=== PATIENT | female | born 1935 | race Two or more races ===

== ENCOUNTER 2016-06-05 09:43 | Inpatient (IN) | payer MEDICARE, OTHER ==
[~2016-06-05] VITALS: Ht 167.6 cm; Wt 70.0 kg
[~2016-06-05 09:43] MED LIST: FURO20TA PO; GABA300C5 PO; LANTUS2P SQ; LEVO.125 PO; LOSA50TA PO; NOVONP2 SQ; SIMV40TA PO
[2016-06-07] MEDS ORDERED: PANT40TA3 PO (10:33)
[2016-06-07] MEDS ORDERED: CARB200T PO (10:33)
[2016-06-18] MEDS ORDERED: PHENYLEPH/NS 1000 MCG/10 ML SYR IV ONE (07:48)
[2016-06-18] MEDS ORDERED: ONDANSETRON HCL 4 MG/2 ML VIAL IV PUSH ONE (07:48)
[2016-06-18] MEDS ORDERED: PROPOFOL 200 MG/20 ML AMP IV ONE (07:48)
[2016-06-18] MEDS ORDERED: NORMOSOL R INJ 1,000 ML IV ONE (07:49)
[2016-06-18] MEDS ORDERED: LACTATED RINGER'S 1000 ML INJ 1,000 ML IV ONE (07:49)
[2016-06-18 10:42] VITALS: BP 125/64; PULSE 69; RESP 18; TEMP 98.2; O2SAT 96
[2016-06-18] MEDS ORDERED: POVIDONE IODINE 5% (ANTISEPSIS KIT) 4 APPLICATIONS EACH NARE PRN (10:45)
[2016-06-18] MEDS ORDERED: METOPROLOL TARTRATE 25 MG TAB PO PRN (10:45)
[2016-06-18] MEDS ORDERED: ceFAZolin 1,000 MG/NS 100 ML IV SCH ×2 (10:45)
[2016-06-18] MEDS ORDERED: INSULIN HUMAN REGULAR 1,000 UNITS/10 ML VIAL SQ PRN (10:45)
[2016-06-18] MEDS ORDERED: LACTATED RINGER'S 1000 ML IV PRN (10:45)
[2016-06-18] MEDS ORDERED: CHLORHEXIDINE GLUCONATE 2 % 1 PACK (2 CLOTHS) TOPICAL PRN (10:45)
[2016-06-18] MEDS ORDERED: SODIUM CHLORID 0.9% 500 ML IV PRN (10:45)
[2016-06-18] MEDS ORDERED: BYST2.5T2 PO (10:52)
[2016-06-18] MEDS ORDERED: DEXAMETHASONE SOD PHOS 4 MG/ML VIAL ONE (13:15)
[2016-06-18] MEDS ORDERED: SUGAMMADEX SODIUM 200 MG/2 ML VIAL IV PUSH ONE ×2 (13:15)
[2016-06-18] MEDS ORDERED: MIDAZOLAM HCL 2 MG/2 ML VIAL ONE (13:15)
[2016-06-18] MEDS ORDERED: ceFAZolin INJ 1,000 MG VIAL IV ONE (16:44)
[2016-06-18] MEDS ORDERED: fentaNYL CITRATE 250 MCG/5 ML AMP ONE (16:56)
[2016-06-18] MEDS ORDERED: ACETAMINOPHEN 1000 MG/100 ML VIAL IV ONE (19:09)
[2016-06-18] MEDS ORDERED: DO NOT ADM ANY ANTICOAGULANT DRUGS PRN (19:42)
--- NOTE | 2016-06-18 19:49 | PD.OP ---
Operative Report Date of Surgery: Jun 18, 2016 Preoperative Diagnosis: (1) Urothelial carcinoma of kidney Postoperative Diagnosis: (1) Urothelial carcinoma of kidney Procedure: Cystoscopy, placement of left ureteral stent and robot-assisted laparoscopic left nephroureterectomy Anesthesia: General Surgeon: Mehul Zuniga Health Physicist(s): Jack Sorenson Operation and Findings: Indication for procedure: The case of a pleasant 81-year-old female who was diagnosed with a low-grade urothelial carcinoma involving the upper pole of the left kidney recently in [place]. Patient underwent biopsy of the mass to confirm the diagnosis. Subsequent metastatic workup was negative. She presents now for a robot-assisted laparoscopic left nephro ureterectomy. Operative procedure in detail: Patient was brought to the operating room suite and placed supine on the OR table. She was then placed under general tracheal anesthesia. She was then repositioned in the dorsolithotomy position and prepped and draped in normal sterile fashion. After the appropriate timeout was undertaken I proceeded with cystoscopic evaluation utilizing the rigid cystoscope with the 20 Marshallese sheath and 30 lens. Both right and left ureteral orifices were in correct anatomic position effluxing clear yellow urine. There were no areas suspicious for bladder cancer. There were no stones or diverticula noted. I then proceeded to pass a 6 Marshallese 24 cm double- J stent over a sensor 0.035 wire into the left kidney to facilitate identification of the ureter. The patient was then repositioned on the OR table in the right lateral recumbent position and was held in position with a beanbag. All pressure points were adequately padded. The patient was once again reprepped and draped in normal sterile fashion. I then proceeded to place the laparoscopic ports. Initially a Veress needle was utilized to create a pneumoperitoneum in standard fashion. The camera port was placed just lateral to the umbilicus on the patient's left side utilizing a visual obturator. Once the camera port was placed, the remaining robotic arm ports numbering 3 as well as a 12 mm miller first port were placed under direct vision. The robot was next Dr. in standard fashion. I repositioned myself over at the [employer] console and Dr. Sorenson remained at the bedside to first leveler. I next commenced with the robotic portion of the procedure. The patient's left hemicolon was mobilized and reflected medially to expose the retroperitoneum. The kidney was mobilized utilizing blunt and sharp dissection until the hilar vessels were identified. They were then skeletonized and subsequently divided and ligated utilizing the endovascular stapling device. The remainder the kidney was further mobilized and the ureter was identified and tracked inferiorly to the pelvic inlet. Just prior to finishing the dissection of the ureter the robotic system gross and medical staff assistant needed to be rebooted twice for her to regain operation. Further mobilization of the ureter was then easily accomplished. At this point in time careful inspection was made for any evidence of active bleeding and was noted. The robot was next undocked and I re-scrubbed and present are myself back over to the operative room table for completion of the case with further mobilization of the distal ureter. I extended the 12 mm medical staff assistant port in a caudad direction to the symphysis pubis with a #10 blade. The underlying fascia was opened using the Bovie cautery. The Bookwalter retractor was then utilized to gain exposure and the ureter was easily identified and further mobilized down to the bladder. A right angle clamp was placed around the juncture of the ureter with the bladder and the tissue was divided and ligated utilizing 2-0 Vicryl suture. The specimen was next handed off. Careful inspection was made factor bleeding and was noted. The wound was next closed after removing the Bookwalter retractor. #1 PDS suture was utilized to reapproximate the lower abdominal fashion. The wound was then irrigated with normal saline and the skin edges reapproximated with the skin stapling device. The 3 robotic arm ports were closed utilizing alex at the skin surface and the final port utilized for the camera was closed as follows. The underlying fascia was reapproximated with 2-0 Vicryl suture and the skin edges reapproximated with the stapling device. Sterile dressings were placed over all of the wound sites. The patient tolerated the procedures without complications and was transferred to the PACU in satisfactory condition. Mehul Zuniga MD Jun 18, 2016 19:49
[2016-06-18] MEDS ORDERED: HYDROmorphone HCL PF 1 MG/ML VIAL IV PRN (20:00)
[2016-06-18] MEDS ORDERED: Post-op Orders (for Pharmacy) MISC XX ONE (20:00)
[2016-06-18] MEDS ORDERED: SODIUM CHLORIDE 0.9% FLUSH 10 ML FLUSH IV FLUSH PRN (20:00)
[2016-06-18] MEDS ORDERED: HYDROmorphone HCL PF 2 MG/ML VIAL IV PRN (20:00)
[2016-06-18] MEDS ORDERED: MORPHINE SULFATE 8 MG/ML INJ ONE (20:19)
[2016-06-18] MEDS: ONDANSETRON HCL 4 MG/2 ML VIAL IV PRN (20:40)
[2016-06-18] MEDS ORDERED: METOCLOPRAMIDE HCL 10 MG/2 ML VIAL ONE (20:56)
[2016-06-18] MEDS ORDERED: HYDROmorphone HCL PF 1 MG/ML VIAL ONE (20:57)
[2016-06-18] MEDS: SODIUM CHLORIDE 0.9% FLUSH 10 ML FLUSH IV FLUSH SCH (21:02)
[2016-06-18] MEDS ORDERED: D5-1/2 NS + KCL 20 MEQ INJ 1,000 ML ONE (21:28)
[2016-06-18] MEDS ORDERED: INSULIN HUMAN REGULAR 1,000 UNITS/10 ML VIAL ONE (22:18)
[2016-06-18] MEDS ORDERED: DEXTROSE 50% IN WATER 50 ML VIAL(D50) IV PUSH PRN (22:30)
[2016-06-18] MEDS ORDERED: GLUCAGON 1 MG/ML VIAL OTHER PRN (22:30)
[2016-06-18 23:20] VITALS: BP 150/100; PULSE 89; RESP 18; TEMP 96.9; O2SAT 100
[2016-06-19] VITALS (9 sets, daily range): BP systolic 155–166; BP diastolic 68–72; PULSE 77–92; RESP 16–17; TEMP 96.1–98.9; O2SAT 92–100
[2016-06-19] MEDS ORDERED: METOCLOPRAMIDE HCL 10 MG/2 ML VIAL IV ONE (01:15)
[2016-06-19] MEDS ORDERED: HYDROmorphone HCL PF 1 MG/ML VIAL IV ONE (01:15)
[2016-06-19] MEDS ORDERED: D5-1/2 NS + KCL 20 MEQ INJ 1,000 ML IV SCH (01:30)
[2016-06-19] MEDS ORDERED: LOW DOSE INSULIN NOVOLIN REGULAR SUPPLEMENTAL SCALE SQ SCH (07:00)
[2016-06-19] MEDS ORDERED: 1/2 NS + KCL 20 MEQ INJ 1,000 ML IV SCH (07:00)
[2016-06-19 07:46] LABS: HEMATOCRIT 37.4 % (35.0-46.0); REVIEW FLAG FINAL
[2016-06-19 09:10] LABS: POTASSIUM 6.3 MEQ/L (3.5-5.1)
[2016-06-19] MEDS: INSULIN DETEMIR 100 UNITS/ML VIAL SQ SCH (09:32)
[2016-06-19] MEDS: FUROSEMIDE 20 MG TAB PO SCH (09:33)
[2016-06-19] MEDS: carBAMazepine 200 MG TAB PO SCH (09:33)
[2016-06-19] MEDS: NEBIVOLOL 2.5 MG TAB PO SCH (09:33)
[2016-06-19] MEDS: SODIUM CHLORIDE 0.9% FLUSH 10 ML FLUSH IV FLUSH SCH ×2 (09:33→21:00)
[2016-06-19] MEDS: MEDIUM DOSE INSULIN NOVOLIN REGULAR SUPPLEMENTAL SCALE SQ SCH ×3 (11:00→21:00)
[2016-06-19] MEDS ORDERED: DEXTROSE 50% IN WATER 50 ML VIAL(D50) IV PUSH PRN (11:00)
[2016-06-19] MEDS ORDERED: GLUCAGON 1 MG/ML VIAL OTHER PRN (11:00)
[2016-06-19] MEDS: SODIUM CHLOR 0.45% 1000 ML INJ 1,000 ML IV SCH ×3 (12:06→21:04)
--- NOTE | 2016-06-19 12:39 | HHI.PR ---
Subjective Patient symptoms today Postop day #1 Complains of nausea and incisional pain Denies vomiting Denies flatus or bowel movement Objective Vital Signs Vital Signs Date Time Temp Pulse Resp B/P Pulse Ox O2 Delivery O2 Flow Rate FiO2 06/19/16 08:00 98.9 83 17 166/72 94 06/19/16 04:05 96.1 85 16 155/70 100 06/19/16 01:28 88 06/18/16 23:44 100 Nasal Cannula 3.00 06/18/16 23:20 96.9 89 18 150/100 100 06/18/16 23:00 97.5 91 15 176/92 99 Nasal Cannula 06/18/16 22:30 90 14 177/82 99 Nasal Cannula 06/18/16 22:00 97.5 62 15 162/74 99 Nasal Cannula 06/18/16 21:30 117 16 117/60 99 Nasal Cannula 06/18/16 21:00 90 14 179/86 99 Nasal Cannula 06/18/16 20:15 92 15 194/85 99 Nasal Cannula 06/18/16 20:00 112 17 188/106 99 Nasal Cannula 06/18/16 19:44 97.6 89 14 167/82 99 Intake & Output 06/19/16 06/19/16 07:00 19:00 Intake Total 2645 ml 0 ml Output Total 1100 ml 350 ml Balance 1545 ml -350 ml Intake Oral 0 ml 0 ml IV Total 845 ml Other 1800 ml Output Urine Total 700 ml 350 ml Estimated Blood Loss 400 ml # Bowel Movements 0 Result Diagram: 06/19/16 0626 06/19/16 0835 Objective Remarks Abdomen soft, dressings clean and dry Extremities well-perfused, nontender Medications and IVs Current Medications Medications (Trade) Dose Ordered Sig/Aruna Route Start Time Stop Time Status Last Admin Lactated Ringer's 1,000 ml @ 30 mls/hr Q24H PRN IV 06/18/16 10:45 06/21/16 10:44 (NS 500 ml Inj) 500 ml @ 30 mls/hr [id number] PRN IV 06/18/16 10:45 06/21/16 10:44 (NS Flush) 2 ml UNSCH PRN IV FLUSH 06/18/16 20:00 (NS Flush) 2 ml BID IV FLUSH 06/18/16 21:00 06/19/16 09:33 (Dilaudid Pf Inj) 0.5 mg Q2H PRN IV 06/18/16 20:00 06/19/16 05:52 (Dilaudid Pf Inj) 1 mg Q2H PRN IV 06/18/16 20:00 Ondansetron HCl 4 mg 4 mg Q6H PRN IV 06/18/16 20:00 06/18/16 20:40 (Ancef Inj/NS Inj) 100 ml @ 200 mls/hr Q8H IV 06/18/16 21:00 06/19/16 13:29 06/19/16 12:22 (Heparin Inj) 5,000 units Q12H SQ 06/19/16 18:42 Miscellaneous Information ALL NURSING DEPARTME... UNSCH PRN .XX 06/18/16 19:42 06/19/16 19:41 (Bystolic) 2.5 mg DAILY PO 06/19/16 09:00 06/19/16 09:33 (TEGretol) 200 mg DAILY PO 06/19/16 09:00 06/19/16 09:33 (Lasix) 20 mg DAILY PO 06/19/16 09:00 06/19/16 09:33 (Neurontin) 300 mg HS PO 06/19/16 21:00 (Levemir Inj) 48 units DAILY@0600 SQ 06/19/16 07:00 06/19/16 09:32 (D50w (Vial) Inj) 25 ml UNSCH PRN IV PUSH 06/19/16 11:00 Glucagon 1 mg 1 mg UNSCH PRN OTHER 06/19/16 11:00 (1/2 NS 1000 ml Inj) 1,000 ml @ 125 mls/hr Q8H IV 06/19/16 11:00 06/19/16 12:06 (Narcan Inj) 0.4 mg UNSCH PRN IV 06/19/16 12:45 UNV (Narcan Inj) 0.4 mg UNSCH PRN IV 06/19/16 12:45 UNV (Dilaudid [employer] Inj) 6 mg UNSCH IV 06/19/16 12:45 UNV [employer] Dosage Infused (Pha) 1 Q8HR OTHER 06/19/16 14:00 UNV Assessment and Plan Assessment and Plan Urologic impression: #1 status post robot-assisted laparoscopic left nephro ureterectomy #2 expected postoperative course Plan: #1 clear liquids as tolerated #2 out of bed to chair in a.m. #3 monitor labs #4 check pathology when available Mehul Zuniga MD Jun 19, 2016 12:39
[2016-06-19] MEDS ORDERED: HYDROmorphone HCL PCA 6 MG/30 ML IV SCH (12:45)
[2016-06-19] MEDS ORDERED: NALOXONE HCL 0.4 MG/ML AMP IV PRN ×2 (12:45)
[2016-06-19] MEDS: ONDANSETRON HCL 4 MG/2 ML VIAL IV PRN (13:08)
[2016-06-19] MEDS: PCA - TOTAL MG DILAUDID DELIVERED PER SHIFT OTHER SCH ×2 (14:00→22:00)
[2016-06-19] MEDS: HEPARIN SODIUM - SQ 10,000 UNITS/ML VIAL SQ SCH (17:35)
[2016-06-19] MEDS: GABAPENTIN 300 MG CAP PO SCH (21:03)
[2016-06-19] MEDS ORDERED: diphenhydrAMINE HCL 50 MG/ML VIAL IV PRN (21:30)
[2016-06-19] MEDS: diphenhydrAMINE HCL 50 MG/ML VIAL IV PRN (22:26)
[2016-06-20] VITALS (7 sets, daily range): BP systolic 131–179; BP diastolic 61–75; PULSE 86–94; RESP 16–18; TEMP 97–99.5; O2SAT 92–98
[2016-06-20] MEDS: INSULIN DETEMIR 100 UNITS/ML VIAL SQ SCH (06:00)
[2016-06-20] MEDS: PCA - TOTAL MG DILAUDID DELIVERED PER SHIFT OTHER SCH ×2 (06:00→14:00)
[2016-06-20 06:17] LABS: HEMATOCRIT 26.3 % (35.0-46.0); MEAN CELL VOLUME 83.7 FL (80.0-100.0); MEAN CORPUSCULAR HEMOGLOBIN 28.5 PG (27.0-34.0); PLATELET COUNT 132 TH/MM3 (150-450); RED BLOOD COUNT 3.14 MIL/MM3 (4.00-5.30); RED CELL DISTRIBUTION WIDTH 14.4 % (11.6-17.2); REVIEW FLAG FINAL; WHITE BLOOD COUNT 11.2 TH/MM3 (4.0-11.0)
[2016-06-20] MEDS: HEPARIN SODIUM - SQ 10,000 UNITS/ML VIAL SQ SCH ×2 (06:42→19:11)
[2016-06-20 06:53] LABS: BICARBONATE 26.7 MEQ/L (21.0-32.0); POTASSIUM 3.8 MEQ/L (3.5-5.1)
[2016-06-20] MEDS: MEDIUM DOSE INSULIN NOVOLIN REGULAR SUPPLEMENTAL SCALE SQ SCH ×4 (07:00→21:30)
[2016-06-20] MEDS: carBAMazepine 200 MG TAB PO SCH (10:10)
[2016-06-20] MEDS: NEBIVOLOL 2.5 MG TAB PO SCH (10:10)
[2016-06-20] MEDS: FUROSEMIDE 20 MG TAB PO SCH (10:11)
[2016-06-20] MEDS: SODIUM CHLORIDE 0.9% FLUSH 10 ML FLUSH IV FLUSH SCH ×2 (10:11→21:00)
[2016-06-20] MEDS: SODIUM CHLOR 0.45% 1000 ML INJ 1,000 ML IV SCH (10:17)
--- NOTE | 2016-06-20 13:02 | HHI.PR ---
Subjective Patient symptoms today Postop day #2 Tolerating small amounts of oral clear liquids No significant flatus or bowel movement Denies vomiting Objective Vital Signs Vital Signs Date Time Temp Pulse Resp B/P Pulse Ox O2 Delivery O2 Flow Rate FiO2 06/20/16 11:39 97.9 86 16 131/70 98 06/20/16 08:07 98.3 94 18 140/62 97 06/20/16 06:00 17 06/20/16 04:10 97.0 91 18 139/63 94 06/20/16 00:15 98.5 87 17 144/61 94 06/19/16 22:00 16 06/19/16 20:59 77 06/19/16 19:25 97.5 92 16 160/68 95 06/19/16 18:24 96 06/19/16 18:00 86 06/19/16 16:32 98.5 85 16 164/72 96 06/19/16 15:34 18 06/19/16 15:04 18 06/19/16 14:00 18 Intake & Output 06/20/16 06/20/16 07:00 19:00 Intake Total 2156 ml Output Total 775 ml Balance 1381 ml Intake Oral 360 ml IV Total 1796 ml Output Urine Total 775 ml # Bowel Movements 0 Result Diagram: 06/20/16 0506/20/16 05 Objective Remarks Abdomen: Moderately distended. Wound sites healing well without signs of infection Extremities well-perfused, nontender Medications and IVs Current Medications Medications (Trade) Dose Ordered Sig/Aruna Route Start Time Stop Time Status Last Admin Lactated Ringer's 1,000 ml @ 30 mls/hr Q24H PRN IV 06/18/16 10:45 06/21/16 10:44 (NS 500 ml Inj) 500 ml @ 30 mls/hr [id number] PRN IV 06/18/16 10:45 06/21/16 10:44 (NS Flush) 2 ml UNSCH PRN IV FLUSH 06/18/16 20:00 (NS Flush) 2 ml BID IV FLUSH 06/18/16 21:00 06/20/16 10:11 (Zofran Inj) 4 mg Q6H PRN IV 06/18/16 20:00 06/19/16 13:08 (Heparin Inj) 5,000 units Q12H SQ 06/19/16 18:42 06/20/16 06:42 (Bystolic) 2.5 mg DAILY PO 06/19/16 09:00 06/20/16 10:10 (TEGretol) 200 mg DAILY PO 06/19/16 09:00 06/20/16 10:10 (Lasix) 20 mg DAILY PO 06/19/16 09:00 06/20/16 10:11 (Neurontin) 300 mg HS PO 06/19/16 21:00 06/19/16 21:03 (Levemir Inj) 48 units DAILY@0600 SQ 06/19/16 07:00 06/19/16 09:32 (D50w (Vial) Inj) 25 ml UNSCH PRN IV PUSH 06/19/16 11:00 Glucagon 1 mg 1 mg UNSCH PRN OTHER 06/19/16 11:00 (1/2 NS 1000 ml Inj) 1,000 ml @ 125 mls/hr Q8H IV 06/19/16 11:00 06/19/16 21:04 (Narcan Inj) 0.4 mg UNSCH PRN IV 06/19/16 12:45 (Dilaudid MANAGER [employer] Inj) 6 mg UNSCH IV 06/19/16 12:45 06/19/16 15:04 MANAGER DATA Dosage Infused (Pha) 1 Q8HR OTHER 06/19/16 14:00 06/20/16 06:00 (Benadryl Inj) 25 mg Q6H PRN IV 06/19/16 22:22 06/19/16 22:26 Assessment and Plan Assessment and Plan Urologic impression: #1 status post robot-assisted laparoscopic left nephro ureterectomy #2 abdominal distention related to ileus Plan: #1 sips clear liquids #2 out of bed to chair #3 monitor labs #4 check pathology when available Mehul Zuniga MD Jun 20, 2016 13:02
[2016-06-20] MEDS: GABAPENTIN 300 MG CAP PO SCH (20:57)
[2016-06-21] VITALS (7 sets, daily range): BP systolic 136–160; BP diastolic 60–76; PULSE 70–90; RESP 16–22; TEMP 97.4–98.3; O2SAT 94–98
[2016-06-21] MEDS: PCA - TOTAL MG DILAUDID DELIVERED PER SHIFT OTHER SCH (06:00)
[2016-06-21] MEDS: HEPARIN SODIUM - SQ 10,000 UNITS/ML VIAL SQ SCH ×2 (06:32→17:56)
[2016-06-21] MEDS: MEDIUM DOSE INSULIN NOVOLIN REGULAR SUPPLEMENTAL SCALE SQ SCH ×4 (06:33→22:07)
[2016-06-21] MEDS: INSULIN DETEMIR 100 UNITS/ML VIAL SQ SCH (06:34)
[2016-06-21 08:08] LABS: HEMATOCRIT 26.9 % (35.0-46.0); MEAN CELL VOLUME 83.6 FL (80.0-100.0); MEAN CORPUSCULAR HGB CONC 33.5 % (32.0-36.0); PLATELET COUNT 81 TH/MM3 (150-450); RED BLOOD COUNT 3.21 MIL/MM3 (4.00-5.30); RED CELL DISTRIBUTION WIDTH 14.2 % (11.6-17.2); WHITE BLOOD COUNT 7.8 TH/MM3 (4.0-11.0)
[2016-06-21 08:11] LABS: REVIEW FLAG FINAL
[2016-06-21 08:47] LABS: BICARBONATE 26.7 MEQ/L (21.0-32.0); POTASSIUM 4.5 MEQ/L (3.5-5.1)
--- NOTE | 2016-06-21 10:05 | HHI.PR ---
Subjective Patient symptoms today Postop day #3 Complains of feeling nauseated Pain adequately controlled Was out of bed to chair for a brief period of time Objective Vital Signs Vital Signs Date Time Temp Pulse Resp B/P Pulse Ox O2 Delivery O2 Flow Rate FiO2 06/21/16 08:34 98.1 90 16 155/68 94 06/21/16 04:00 97.8 87 17 160/67 94 06/21/16 00:50 97.5 83 17 136/61 95 06/20/16 20:15 99.5 93 18 157/73 93 06/20/16 20:05 87 06/20/16 16:45 98.0 93 17 179/75 92 06/20/16 11:39 97.9 86 16 131/70 98 Intake & Output 06/21/16 06/21/16 07:00 19:00 Intake Total 2500 ml Output Total 2050 ml Balance 450 ml Intake Oral 360 ml IV Total 2140 ml Output Urine Total 2050 ml # Bowel Movements 0 Result Diagram: 06/21/1623 06/21/16 0723 Other Results Pathology report demonstrated 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 Objective Remarks Abdomen: Less distended. Wound sites healing well without signs of infection Extremities well-perfused, nontender Medications and IVs Current Medications Medications (Trade) Dose Ordered Sig/Aruna Route Start Time Stop Time Status Last Admin Lactated Ringer's 1,000 ml @ 30 mls/hr Q24H PRN IV 06/18/16 10:45 06/21/16 10:44 (NS 500 ml Inj) 500 ml @ 30 mls/hr [id number] PRN IV 06/18/16 10:45 06/21/16 10:44 (NS Flush) 2 ml UNSCH PRN IV FLUSH 06/18/16 20:00 (NS Flush) 2 ml BID IV FLUSH 06/18/16 21:00 06/20/16 10:11 (Zofran Inj) 4 mg Q6H PRN IV 06/18/16 20:00 06/19/16 13:08 (Heparin Inj) 5,000 units Q12H SQ 06/19/16 18:42 06/21/16 06:32 (Bystolic) 2.5 mg DAILY PO 06/19/16 09:00 06/20/16 10:10 (TEGretol) 200 mg DAILY PO 06/19/16 09:00 06/20/16 10:10 (Lasix) 20 mg DAILY PO 06/19/16 09:00 06/20/16 10:11 (Neurontin) 300 mg HS PO 06/19/16 21:00 06/20/16 20:57 (Levemir Inj) 48 units DAILY@0600 SQ 06/19/16 07:00 06/21/16 06:34 (D50w (Vial) Inj) 25 ml UNSCH PRN IV PUSH 06/19/16 11:00 Glucagon 1 mg 1 mg UNSCH PRN OTHER 06/19/16 11:00 (1/2 NS 1000 ml Inj) 1,000 ml @ 125 mls/hr Q8H IV 06/19/16 11:00 06/19/16 21:04 (Narcan Inj) 0.4 mg UNSCH PRN IV 06/19/16 12:45 (Dilaudid [facility] Inj) 6 mg UNSCH IV 06/19/16 12:45 06/19/16 15:04 [facility] Dosage Infused (Pha) 1 Q8HR OTHER 06/19/16 14:00 06/21/16 06:00 (Benadryl Inj) 25 mg Q6H PRN IV 06/19/16 22:22 06/19/16 22:26 Assessment and Plan Assessment and Plan Urologic impression: #1 status post robot-assisted laparoscopic left nephro ureterectomy #2 slowly resolving ileus ileus Plan: #1 clear liquids as tolerated #2 physical therapy consult for ambulation exercises #3 implement bowel regimen with Colace and Dulcolax suppository Mehul Zuniga MD Jun 21, 2016 10:05
[2016-06-21] MEDS ORDERED: oxyCODONE/ACETAMINOPHEN 5 MG/325 MG TAB PO PRN (10:15)
[2016-06-21] MEDS ORDERED: BISACODYL 10 MG SUPP RECTAL ONE (10:15)
[2016-06-21] MEDS: SODIUM CHLORIDE 0.9% FLUSH 10 ML FLUSH IV FLUSH SCH ×2 (10:21→22:07)
[2016-06-21] MEDS: FUROSEMIDE 20 MG TAB PO SCH (10:23)
[2016-06-21] MEDS: ONDANSETRON HCL 4 MG/2 ML VIAL IV PRN (10:23)
[2016-06-21] MEDS: carBAMazepine 200 MG TAB PO SCH (10:23)
[2016-06-21] MEDS: NEBIVOLOL 2.5 MG TAB PO SCH (10:23)
[2016-06-21] MEDS: SODIUM CHLOR 0.45% 1000 ML INJ 1,000 ML IV SCH (14:10)
[2016-06-21] MEDS: DOCUSATE SODIUM 100 MG CAP PO SCH ×2 (15:15→18:00)
[2016-06-21] MEDS: oxyCODONE/ACETAMINOPHEN 5 MG/325 MG TAB PO PRN (18:00)
[2016-06-21] MEDS: GABAPENTIN 300 MG CAP PO SCH (22:07)
[2016-06-22] VITALS (8 sets, daily range): BP systolic 122–151; BP diastolic 57–97; PULSE 67–84; RESP 18; TEMP 96.3–97.7; O2SAT 96–98
[2016-06-22 06:24] LABS: BICARBONATE 28.5 MEQ/L (21.0-32.0); POTASSIUM 4.1 MEQ/L (3.5-5.1)
[2016-06-22] MEDS: HEPARIN SODIUM - SQ 10,000 UNITS/ML VIAL SQ SCH ×2 (06:33→17:41)
[2016-06-22] MEDS: MEDIUM DOSE INSULIN NOVOLIN REGULAR SUPPLEMENTAL SCALE SQ SCH ×4 (06:37→20:54)
[2016-06-22] MEDS: INSULIN DETEMIR 100 UNITS/ML VIAL SQ SCH (06:38)
--- NOTE | 2016-06-22 09:24 | HHI.PR ---
Subjective Patient symptoms today Pt seen and examined. Feels well. Pain controlled. Passing some flatus. Objective Vital Signs Vital Signs Date Time Temp Pulse Resp B/P Pulse Ox O2 Delivery O2 Flow Rate FiO2 06/22/16 08:00 96.9 79 18 135/60 98 06/22/16 07:03 Room Air 06/22/16 07:02 79 06/22/16 04:00 97.3 84 18 135/97 96 06/22/16 00:00 97.5 82 18 122/58 97 06/21/16 20:08 80 06/21/16 20:00 98.1 84 22 151/76 94 06/21/16 16:30 98.3 70 16 139/60 98 06/21/16 14:00 97.4 79 18 147/71 95 Intake & Output 06/22/16 06/22/16 07:00 19:00 Intake Total 720 ml Output Total 725 ml Balance -5 ml Intake Oral 720 ml Output Urine Total 725 ml # Bowel Movements 0 Result Diagram: 06/21/1672206/22/16523 Objective Remarks Abdomen: Less distended. Wound sites healing well without signs of infection Extremities well-perfused, nontender 06/22 Abd:soft,minimal tenderness, slight distension Felix with clear urine Ext: neg C/C/E Medications and IVs Current Medications Medications (Trade) Dose Ordered Sig/Aruna Route Start Time Stop Time Status Last Admin (NS Flush) 2 ml UNSCH PRN IV FLUSH 06/18/16 20:00 (NS Flush) 2 ml BID IV FLUSH 06/18/16 21:00 06/21/16 22:07 (Zofran Inj) 4 mg Q6H PRN IV 06/18/16 20:00 06/21/16 10:23 (Heparin Inj) 5,000 units Q12H SQ 06/19/16 18:42 06/22/16 06:33 (Bystolic) 2.5 mg DAILY PO 06/19/16 09:00 06/21/16 10:23 (TEGretol) 200 mg DAILY PO 06/19/16 09:00 06/21/16 10:23 (Lasix) 20 mg DAILY PO 06/19/16 09:00 06/21/16 10:23 (Neurontin) 300 mg HS PO 06/19/16 21:00 06/21/16 22:07 (Levemir Inj) 48 units DAILY@0600 SQ 06/19/16 07:00 06/22/16 06:38 (D50w (Vial) Inj) 25 ml UNSCH PRN IV PUSH 06/19/16 11:00 Glucagon 1 mg 1 mg UNSCH PRN OTHER 06/19/16 11:00 (1/2 NS 1000 ml Inj) 1,000 ml @ 125 mls/hr Q8H IV 06/19/16 11:00 06/21/16 14:10 (Benadryl Inj) 25 mg Q6H PRN IV 06/19/16 22:22 06/19/16 22:26 (Colace) 100 mg TID PO 06/21/16 13:00 06/21/16 15:15 (Percocet 5-325 Mg) 1 tab Q6H PRN PO 06/21/16 10:15 06/21/16 18:00 (Percocet 5-325 Mg) 2 tab Q6H PRN PO 06/21/16 10:15 06/22/16 06:33 Assessment and Plan Assessment and Plan Urologic impression: #1 status post robot-assisted laparoscopic left nephro ureterectomy #2 slowly resolving ileus ileus Plan: #1 clear liquids as tolerated #2 physical therapy consult for ambulation exercises #3 implement bowel regimen with Colace and Dulcolax suppository 06/22 Stable s/p Left Neph-U OOB/Ambulate Jack Sorenson DO Jun 22, 2016 09:24
[2016-06-22] MEDS: SODIUM CHLOR 0.45% 1000 ML INJ 1,000 ML IV SCH ×2 (11:00→19:00)
[2016-06-22] MEDS: DOCUSATE SODIUM 100 MG CAP PO SCH ×3 (12:27→17:41)
[2016-06-22] MEDS: FUROSEMIDE 20 MG TAB PO SCH (12:28)
[2016-06-22] MEDS: carBAMazepine 200 MG TAB PO SCH (12:28)
[2016-06-22] MEDS: SODIUM CHLORIDE 0.9% FLUSH 10 ML FLUSH IV FLUSH SCH ×2 (12:28→19:51)
[2016-06-22] MEDS: NEBIVOLOL 2.5 MG TAB PO SCH (12:28)
[2016-06-22] MEDS: oxyCODONE/ACETAMINOPHEN 5 MG/325 MG TAB PO PRN (12:28)
[2016-06-22] MEDS: GABAPENTIN 300 MG CAP PO SCH (20:47)
[2016-06-23] VITALS (7 sets, daily range): BP systolic 118–177; BP diastolic 59–80; PULSE 74–84; RESP 16–22; TEMP 96.9–98.7; O2SAT 95–99
[2016-06-23] MEDS: SODIUM CHLOR 0.45% 1000 ML INJ 1,000 ML IV SCH ×3 (02:20→16:35)
[2016-06-23] MEDS: INSULIN DETEMIR 100 UNITS/ML VIAL SQ SCH (05:19)
[2016-06-23] MEDS: HEPARIN SODIUM - SQ 10,000 UNITS/ML VIAL SQ SCH ×2 (05:20→16:32)
[2016-06-23] MEDS: MEDIUM DOSE INSULIN NOVOLIN REGULAR SUPPLEMENTAL SCALE SQ SCH ×4 (05:27→21:00)
[2016-06-23] MEDS: NEBIVOLOL 2.5 MG TAB PO SCH (08:53)
[2016-06-23] MEDS: carBAMazepine 200 MG TAB PO SCH (08:53)
[2016-06-23] MEDS: SODIUM CHLORIDE 0.9% FLUSH 10 ML FLUSH IV FLUSH SCH ×2 (08:53→21:14)
[2016-06-23] MEDS: FUROSEMIDE 20 MG TAB PO SCH (08:53)
[2016-06-23] MEDS: DOCUSATE SODIUM 100 MG CAP PO SCH ×3 (08:53→16:32)
--- NOTE | 2016-06-23 09:16 | HHI.PR ---
Subjective Patient symptoms today Pt resting quietly. Did not get OOB yesterday. Tolerating liquids. Objective Vital Signs Vital Signs Date Time Temp Pulse Resp B/P Pulse Ox O2 Delivery O2 Flow Rate FiO2 06/23/16 08:57 Room Air 06/23/16 08:00 98.7 84 18 164/70 95 06/23/16 00:00 96.9 78 22 139/63 99 06/22/16 23:24 Room Air 06/22/16 21:28 67 06/22/16 20:00 97.7 77 18 151/67 98 06/22/16 18:59 18 06/22/16 16:00 96.3 67 18 138/57 98 06/22/16 12:00 96.4 71 18 123/67 96 Intake & Output 06/23/16 06/23/16 07:00 19:00 Intake Total 1020 ml Output Total 1750 ml Balance -730 ml Intake Oral 1020 ml Output Urine Total 1750 ml # Bowel Movements 0 Result Diagram: 06/21/1623 06/22/16 0524 Objective Remarks Abdomen: Less distended. Wound sites healing well without signs of infection Extremities well-perfused, nontender 06/22 Abd:soft,minimal tenderness, slight distension Felix with clear urine Ext: neg C/C/E 06/23 Abd:soft,minimal tenderness, slight distension, passed some flatus Felix with clear urine Ext: neg C/C/E Medications and IVs Current Medications Medications (Trade) Dose Ordered Sig/Aruna Route Start Time Stop Time Status Last Admin (NS Flush) 2 ml UNSCH PRN IV FLUSH 06/18/16 20:00 (NS Flush) 2 ml BID IV FLUSH 06/18/16 21:00 06/22/16 12:28 (Zofran Inj) 4 mg Q6H PRN IV 06/18/16 20:00 06/21/16 10:23 (Heparin Inj) 5,000 units Q12H SQ 06/19/16 18:42 06/23/16 05:20 (Bystolic) 2.5 mg DAILY PO 06/19/16 09:00 06/23/16 08:53 (TEGretol) 200 mg DAILY PO 06/19/16 09:00 06/23/16 08:53 (Lasix) 20 mg DAILY PO 06/19/16 09:00 06/23/16 08:53 (Neurontin) 300 mg HS PO 06/19/16 21:00 06/22/16 20:47 (Levemir Inj) 48 units DAILY@0600 SQ 06/19/16 07:00 06/23/16 05:19 (D50w (Vial) Inj) 25 ml UNSCH PRN IV PUSH 06/19/16 11:00 Glucagon 1 mg 1 mg UNSCH PRN OTHER 06/19/16 11:00 (1/2 NS 1000 ml Inj) 1,000 ml @ 125 mls/hr Q8H IV 06/19/16 11:00 06/21/16 14:10 (Benadryl Inj) 25 mg Q6H PRN IV 06/19/16 22:22 06/19/16 22:26 (Colace) 100 mg TID PO 06/21/16 13:00 06/23/16 08:53 (Percocet 5-325 Mg) 1 tab Q6H PRN PO 06/21/16 10:15 06/22/16 12:28 (Percocet 5-325 Mg) 2 tab Q6H PRN PO 06/21/16 10:15 06/22/16 06:33 Assessment and Plan Assessment and Plan Urologic impression: #1 status post robot-assisted laparoscopic left nephro ureterectomy #2 slowly resolving ileus ileus Plan: #1 clear liquids as tolerated #2 physical therapy consult for ambulation exercises #3 implement bowel regimen with Colace and Dulcolax suppository 06/22 Stable s/p Left Neph-U OOB/Ambulate 06/23 Stable s/p Left Neph-U OOB/Ambulate PT consulted Continue clears for now Jack Sorenson DO Jun 23, 2016 09:16
[2016-06-23] MEDS: GABAPENTIN 300 MG CAP PO SCH (21:15)
[2016-06-24] VITALS (7 sets, daily range): BP systolic 111–155; BP diastolic 64–73; PULSE 69–76; RESP 16–20; TEMP 96.9–98.3; O2SAT 93–96
[2016-06-24] MEDS: SODIUM CHLOR 0.45% 1000 ML INJ 1,000 ML IV SCH ×3 (03:00→22:27)
[2016-06-24] MEDS: oxyCODONE/ACETAMINOPHEN 5 MG/325 MG TAB PO PRN (04:20)
[2016-06-24] MEDS: HEPARIN SODIUM - SQ 10,000 UNITS/ML VIAL SQ SCH ×2 (05:48→17:43)
[2016-06-24] MEDS: INSULIN DETEMIR 100 UNITS/ML VIAL SQ SCH (05:48)
[2016-06-24] MEDS: MEDIUM DOSE INSULIN NOVOLIN REGULAR SUPPLEMENTAL SCALE SQ SCH ×4 (06:04→21:00)
[2016-06-24] MEDS: DOCUSATE SODIUM 100 MG CAP PO SCH ×3 (08:59→17:43)
[2016-06-24] MEDS: NEBIVOLOL 2.5 MG TAB PO SCH (08:59)
[2016-06-24] MEDS: carBAMazepine 200 MG TAB PO SCH (08:59)
[2016-06-24] MEDS: FUROSEMIDE 20 MG TAB PO SCH (09:00)
[2016-06-24] MEDS: SODIUM CHLORIDE 0.9% FLUSH 10 ML FLUSH IV FLUSH SCH ×2 (09:00→21:00)
--- NOTE | 2016-06-24 14:29 | HHI.PR ---
Subjective Patient symptoms today Postoperative day #6 Ambulating with assistance Tolerating clear liquid diet Passing flatus but denies bowel movement Objective Vital Signs Vital Signs Date Time Temp Pulse Resp B/P Pulse Ox O2 Delivery O2 Flow Rate FiO2 06/24/16 08:00 97.2 74 17 137/69 94 06/24/16 04:00 97.1 69 18 153/70 94 06/24/16 01:08 Room Air 06/24/16 00:00 98.3 76 18 142/73 93 06/23/16 23:04 76 06/23/16 20:00 98.2 77 18 152/71 95 06/23/16 16:35 Room Air 06/23/16 16:29 98.7 76 16 177/80 96 Intake & Output 06/24/16 06/24/16 07:00 19:00 Intake Total 240 ml Output Total 1150 ml Balance -910 ml Intake Oral 240 ml IV Total 0 ml Output Urine Total 1150 ml # Bowel Movements 0 Result Diagram: 06/21/1623 06/22/1624 Objective Remarks Abdomen soft, nondistended, nontender Wound sites clean and dry Extremities well-perfused, nontender Felix catheter draining clear yellow urine. Medications and IVs Current Medications Medications (Trade) Dose Ordered Sig/Aruna Route Start Time Stop Time Status Last Admin (NS Flush) 2 ml UNSCH PRN IV FLUSH 06/18/16 20:00 (NS Flush) 2 ml BID IV FLUSH 06/18/16 21:00 06/24/16 09:00 (Zofran Inj) 4 mg Q6H PRN IV 06/18/16 20:00 06/21/16 10:23 (Heparin Inj) 5,000 units Q12H SQ 06/19/16 18:42 06/24/16 05:48 (Bystolic) 2.5 mg DAILY PO 06/19/16 09:00 06/24/16 08:59 (TEGretol) 200 mg DAILY PO 06/19/16 09:00 06/24/16 08:59 (Lasix) 20 mg DAILY PO 06/19/16 09:00 06/24/16 09:00 (Neurontin) 300 mg HS PO 06/19/16 21:00 06/23/16 21:15 (Levemir Inj) 48 units DAILY@0600 SQ 06/19/16 07:00 06/24/16 05:48 (D50w (Vial) Inj) 25 ml UNSCH PRN IV PUSH 06/19/16 11:00 Glucagon 1 mg 1 mg UNSCH PRN OTHER 06/19/16 11:00 (1/2 NS 1000 ml Inj) 1,000 ml @ 125 mls/hr Q8H IV 06/19/16 11:00 06/21/16 14:10 (Benadryl Inj) 25 mg Q6H PRN IV 06/19/16 22:22 06/19/16 22:26 (Colace) 100 mg TID PO 06/21/16 13:00 06/24/16 13:06 (Percocet 5-325 Mg) 1 tab Q6H PRN PO 06/21/16 10:15 06/24/16 04:20 (Percocet 5-325 Mg) 2 tab Q6H PRN PO 06/21/16 10:15 06/22/16 06:33 Assessment and Plan Assessment and Plan Urologic impression: #1 status post robot-assisted laparoscopic left nephro ureterectomy #2 making slow steady progress but may require inpatient rehabilitation Plan: #1 advanced to 1800-calorie ADA diet #2 decrease IV fluid rate #3 case management consult for possible inpatient rehabilitation Mehul Zuniga MD Jun 24, 2016 14:29
[2016-06-24] MEDS: GABAPENTIN 300 MG CAP PO SCH (22:26)
[2016-06-25] VITALS (7 sets, daily range): BP systolic 125–157; BP diastolic 60–80; PULSE 72–80; RESP 16–20; TEMP 97.1–98; O2SAT 94–99
[2016-06-25] MEDS: INSULIN DETEMIR 100 UNITS/ML VIAL SQ SCH (05:35)
[2016-06-25] MEDS: HEPARIN SODIUM - SQ 10,000 UNITS/ML VIAL SQ SCH ×2 (05:36→17:46)
[2016-06-25] MEDS: MEDIUM DOSE INSULIN NOVOLIN REGULAR SUPPLEMENTAL SCALE SQ SCH ×4 (05:36→21:00)
[2016-06-25] MEDS: diphenhydrAMINE HCL 50 MG/ML VIAL IV PRN (05:37)
[2016-06-25] MEDS: SODIUM CHLORIDE 0.9% FLUSH 10 ML FLUSH IV FLUSH SCH ×2 (07:55→21:00)
[2016-06-25] MEDS: FUROSEMIDE 20 MG TAB PO SCH (07:56)
[2016-06-25] MEDS: carBAMazepine 200 MG TAB PO SCH (07:56)
[2016-06-25] MEDS: DOCUSATE SODIUM 100 MG CAP PO SCH ×3 (07:56→17:45)
[2016-06-25] MEDS: SODIUM CHLOR 0.45% 1000 ML INJ 1,000 ML IV SCH (08:09)
[2016-06-25] MEDS: NEBIVOLOL 2.5 MG TAB PO SCH (08:12)
--- NOTE | 2016-06-25 13:27 | HHI.PR ---
Subjective Patient symptoms today Postoperative day #7 Feels fine Tolerating oral intake well Passing flatus but denies bowel movement Objective Vital Signs Vital Signs Date Time Temp Pulse Resp B/P Pulse Ox O2 Delivery O2 Flow Rate FiO2 06/25/16 12:00 97.3 79 16 139/66 94 06/25/16 08:10 72 06/25/16 08:00 97.3 74 17 150/70 95 06/25/16 04:00 97.6 80 18 139/79 94 06/25/16 00:00 98.0 78 20 136/80 95 06/24/16 20:00 98.2 74 20 148/72 94 06/24/16 19:20 96.9 71 16 154/67 96 06/24/16 16:00 97.2 72 18 155/69 93 Intake & Output 06/25/16 06/25/16 07:00 19:00 Intake Total 1668 ml Output Total 1100 ml Balance 568 ml Intake Oral 700 ml IV Total 968 ml Output Urine Total 1100 ml # Bowel Movements 0 Result Diagram: 06/21/1672206/22/16523 Objective Remarks Abdomen soft, nondistended, nontender Wound sites clean and dry Extremities well-perfused, nontender Felix catheter draining clear yellow urine. Medications and IVs Current Medications Medications (Trade) Dose Ordered Sig/Arnua Route Start Time Stop Time Status Last Admin (NS Flush) 2 ml UNSCH PRN IV FLUSH 06/18/16 20:00 (NS Flush) 2 ml BID IV FLUSH 06/18/16 21:00 06/25/16 07:55 (Zofran Inj) 4 mg Q6H PRN IV 06/18/16 20:00 06/21/16 10:23 (Heparin Inj) 5,000 units Q12H SQ 06/19/16 18:42 06/25/16 05:36 (Bystolic) 2.5 mg DAILY PO 06/19/16 09:00 06/25/16 08:12 (TEGretol) 200 mg DAILY PO 06/19/16 09:00 06/25/16 07:56 (Lasix) 20 mg DAILY PO 06/19/16 09:00 06/25/16 07:56 (Neurontin) 300 mg HS PO 06/19/16 21:00 06/24/16 22:26 (Levemir Inj) 48 units DAILY@0600 SQ 06/19/16 07:00 06/25/16 05:35 (D50w (Vial) Inj) 25 ml UNSCH PRN IV PUSH 06/19/16 11:00 Glucagon 1 mg 1 mg UNSCH PRN OTHER 06/19/16 11:00 (1/2 NS 1000 ml Inj) 1,000 ml @ 83 mls/hr Q12H3M IV 06/19/16 11:00 06/25/16 08:09 (Benadryl Inj) 25 mg Q6H PRN IV 06/19/16 22:22 06/25/16 05:37 (Colace) 100 mg TID PO 06/21/16 13:00 06/25/16 07:56 (Percocet 5-325 Mg) 1 tab Q6H PRN PO 06/21/16 10:15 06/24/16 04:20 (Percocet 5-325 Mg) 2 tab Q6H PRN PO 06/21/16 10:15 06/22/16 06:33 Assessment and Plan Assessment and Plan Urologic impression: #1 status post robot-assisted laparoscopic left nephro ureterectomy #2 continues to make steady progress but may benefit from inpatient rehabilitation Plan: #1 continue with physical therapy #2 IV to saline lock #3 Dulcolax suppository #4 case management working on rehabilitation options Mehul Zuniga MD Jun 25, 2016 13:27
[2016-06-25] MEDS ORDERED: BISACODYL 10 MG SUPP RECTAL ONE (13:30)
[2016-06-25] MEDS: GABAPENTIN 300 MG CAP PO SCH (21:30)
[2016-06-26] VITALS: BP 151/70; PULSE 80; RESP 20; TEMP 98.9; O2SAT 95
[2016-06-26] MEDS: HEPARIN SODIUM - SQ 10,000 UNITS/ML VIAL SQ SCH (05:51)
[2016-06-26] MEDS: INSULIN DETEMIR 100 UNITS/ML VIAL SQ SCH (05:56)
[2016-06-26] MEDS: MEDIUM DOSE INSULIN NOVOLIN REGULAR SUPPLEMENTAL SCALE SQ SCH ×2 (05:57→11:14)
[2016-06-26 08:00] VITALS: BP 144/68; PULSE 77; RESP 17; TEMP 97.6; O2SAT 95
[2016-06-26] MEDS: SODIUM CHLORIDE 0.9% FLUSH 10 ML FLUSH IV FLUSH SCH (08:56)
[2016-06-26] MEDS: DOCUSATE SODIUM 100 MG CAP PO SCH ×2 (08:57→13:46)
[2016-06-26] MEDS: carBAMazepine 200 MG TAB PO SCH (08:57)
[2016-06-26] MEDS: FUROSEMIDE 20 MG TAB PO SCH (08:57)
[2016-06-26] MEDS: NEBIVOLOL 2.5 MG TAB PO SCH (08:57)
--- NOTE | 2016-06-26 10:21 | HHI.PR ---
Subjective Patient symptoms today Postoperative day #8 Without complaints Ambulating with assistance Tolerating oral intake well Passing gas and had a small bowel movement late yesterday Objective Vital Signs Vital Signs Date Time Temp Pulse Resp B/P Pulse Ox O2 Delivery O2 Flow Rate FiO2 06/26/16 08:00 97.6 77 17 144/68 95 06/26/16 00:00 98.9 80 20 151/70 95 06/25/16 20:00 98.0 76 20 157/67 99 06/25/16 16:00 97.1 74 16 125/60 94 06/25/16 12:00 97.3 79 16 139/66 94 Intake & Output 06/26/16 06/26/16 07:00 19:00 Intake Total 120 ml Output Total 850 ml Balance -730 ml Intake Oral 120 ml Output Urine Total 850 ml # Bowel Movements 1 Result Diagram: 06/22/16523 Objective Remarks Abdomen soft, nondistended, nontender Wound sites clean and dry Extremities well-perfused, nontender Felix catheter draining clear yellow urine. Medications and IVs Current Medications Medications (Trade) Dose Ordered Sig/Aruna Route Start Time Stop Time Status Last Admin (NS Flush) 2 ml UNSCH PRN IV FLUSH 06/18/16 20:00 (NS Flush) 2 ml BID IV FLUSH 06/18/16 21:00 06/26/16 08:56 (Zofran Inj) 4 mg Q6H PRN IV 06/18/16 20:00 06/21/16 10:23 (Heparin Inj) 5,000 units Q12H SQ 06/19/16 18:42 06/26/16 05:51 (Bystolic) 2.5 mg DAILY PO 06/19/16 09:00 06/26/16 08:57 (TEGretol) 200 mg DAILY PO 06/19/16 09:00 06/26/16 08:57 (Lasix) 20 mg DAILY PO 06/19/16 09:00 06/26/16 08:57 (Neurontin) 300 mg HS PO 06/19/16 21:00 06/25/16 21:30 (Levemir Inj) 48 units DAILY@0600 SQ 06/19/16 07:00 06/26/16 05:56 (D50w (Vial) Inj) 25 ml UNSCH PRN IV PUSH 06/19/16 11:00 (Glucagon Inj) 1 mg UNSCH PRN OTHER 06/19/16 11:00 (Benadryl Inj) 25 mg Q6H PRN IV 06/19/16 22:22 06/25/16 05:37 (Colace) 100 mg TID PO 06/21/16 13:00 06/26/16 08:57 (Percocet 5-325 Mg) 1 tab Q6H PRN PO 06/21/16 10:15 06/24/16 04:20 (Percocet 5-325 Mg) 2 tab Q6H PRN PO 06/21/16 10:15 06/22/16 06:33 Assessment and Plan Assessment and Plan Urologic impression: #1 status post robot-assisted laparoscopic left nephro ureterectomy #2 urologically stable for transfer to rehabilitation facility Plan: #1 continue with physical therapy #2 awaiting placement to rehabilitation facility #3 Felix catheter to be removed this Friday #4 office follow up visit early next week to have surgical alex removed Mehul Zuniga MD Jun 26, 2016 10:21
[2016-06-26] MEDS ORDERED: DOCU1CAP39 PO (10:43)
--- NOTE | 2016-06-26 10:48 | HHI.DS ---
Discharge Summary Admission Date Jun 18, 2016 at 09:36 Discharge Date: Jun 26, 2016 Admitting Diagnosis (1) Urothelial carcinoma of kidney Diagnosis: Principal Procedures On June 18, 2016 patient underwent a robot assisted laparoscopic left nephro ureterectomy Brief History 81-year-old female who was recently diagnosed as having urothelial cancer involving the left kidney who was admitted on June 18 to undergo surgical management. CBC/BMP: 06/22/16 0524 PE at Discharge Abdomen soft, nondistended, nontender Incision sites clean and dry Extremities well-perfused, nontender Hospital Course Patient underwent surgery as outlined above on June 18 without complications. Postoperatively the patient had an uncomplicated course. She made slow steady progress with each subsequent postoperative day. By postoperative day #8 she was tolerating a diabetic diet, ambulating with assistance and had return of her GI function. Her vital signs remained stable. A decision was thus made to clear the patient for transfer to a retirement facility for short term rehabilitation. Pt Condition on Discharge: Good Discharge Disposition: Discharge to SNF Discharge Instructions DIET: Follow Instructions for: Diabetic Diet Activities you can perform: Shower Only-No Bath, See Additionl Instruction Activities to avoid: Strenuous Activity Additional Activity Instructio: No lifting more than 15 pounds Mehul Zuniga MD Jun 26, 2016 10:47
[2016-06-26 12:00] VITALS: BP 137/67; PULSE 77; RESP 16; TEMP 95.8; O2SAT 95
[2016-07-25] MEDS ORDERED: PROT40TA PO (15:42)
[2016-07-25] MEDS ORDERED: NEUR300C PO (15:42)
== END 2016-06-26 14:03 | DRG 657 ==
LOC: HSDI 06-18 09:36 → EDUNIT# 06-18 12:00 → N06A 06-18 23:34 → N07A 06-24 19:48
PROVIDERS: ADMIT Urology; ATTEND Urology
PROC: 0TB74ZZ Excision of Left Ureter, Percutaneous Endoscopic Approach (ICD-10-PCS; 2016-06-18)
PROC: 8E0W4CZ Robotic Assisted Procedure of Trunk Region, Percutaneous Endoscopic Approach (ICD-10-PCS; 2016-06-18)
PROC: 0T778DZ Dilation of Left Ureter with Intraluminal Device, Via Natural or Artificial Opening Endoscopic (ICD-10-PCS; 2016-06-18)
PROC: 0TT14ZZ Resection of Left Kidney, Percutaneous Endoscopic Approach (ICD-10-PCS; principal; 2016-06-18 13:41)
DX: C64.2 Malignant neoplasm of left kidney, except renal pelvis (principal); K56.7 Ileus, unspecified; R11.0 Nausea; I10 Essential (primary) hypertension; M19.90 Unspecified osteoarthritis, unspecified site; E78.5 Hyperlipidemia, unspecified; Z87.442 Personal history of urinary calculi
CPT/HCPCS: 76937; 80048; 82947; 82948; 85014; 85018; 85027; 86850; 86900; 86901; 86920; 88307; C1769; C2617; J0131; J0690; J1100; J1170; J1200; J1644; J1815; J2250; J2270; J2370; J2405; J2765; J3010; J3480; J7120

== ENCOUNTER → 2016-06-07 | Outpatient (CLI) | payer MEDICARE, OTHER ==
[~2016-06-07] MED LIST changes: +BYST2.5T2 PO; +CARB100S PO; +CARB200T PO; +DOCU1CAP39 PO; +NEUR300C PO; +PANT40TA3 PO; +PROT40TA PO
[2016-06-07 10:38] LABS: PROTHROMBIN TIME - PATIENT 11.2 SEC (9.8-11.6)
[2016-06-07 10:39] LABS: AUTOMATED NEUTROPHIL # 3.9 TH/MM3 (1.8-7.7); BASOPHIL % 0.6 % (0.0-2.0); EOSINOPHIL # 0.3 TH/MM3 (0-0.4); EOSINOPHIL % 5.6 % (0.0-4.0); HEMATOCRIT 37.5 % (35.0-46.0); HEMO FLAGS DIFF FINAL; LYMPH % 21.8 % (9.0-44.0); LYMPHOCYTE # 1.3 TH/MM3 (1.0-4.8); MEAN CELL VOLUME 84.5 FL (80.0-100.0); MEAN CORPUSCULAR HEMOGLOBIN 28.5 PG (27.0-34.0); MEAN CORPUSCULAR HGB CONC 33.7 % (32.0-36.0); PLATELET COUNT 132 TH/MM3 (150-450); RED BLOOD COUNT 4.44 MIL/MM3 (4.00-5.30); RED CELL DISTRIBUTION WIDTH 14.3 % (11.6-17.2); WHITE BLOOD COUNT 6.1 TH/MM3 (4.0-11.0)
[2016-06-07 10:57] LABS: ALKALINE PHOSPHATASE 96 U/L (45-117); ALT (GPT) 20 U/L (10-53); ANION GAP 3 MEQ/L (5-15); AST (GOT) 17 U/L (15-37); BLOOD UREA NITROGEN 20 MG/DL (7-18); CHLORIDE 105 MEQ/L (98-107); GLOMERULAR FILTRATION RATE 41 ML/MIN (>89); GLUCOSE,FASTING 121 MG/DL (74-99); POTASSIUM 4.9 MEQ/L (3.5-5.1); SODIUM (NA) 142 MEQ/L (136-145); TOTAL BILIRUBIN ADULT 0.4 MG/DL (0.2-1.0)
== END ==
LOC: CPRE 10:02
PROVIDERS: ATTEND Urology
DX: Z01.810 Encounter for preprocedural cardiovascular examination (principal); Z01.812 Encounter for preprocedural laboratory examination; C64.2 Malignant neoplasm of left kidney, except renal pelvis
CPT/HCPCS: 36415; 80053; 85025; 85610; 85730